=== PATIENT | female | born 1960 | race Caucasian/White ===

== ENCOUNTER 2016-09-30 08:43 | Day surgery (SDC) | payer MEDICARE, BC ==
[2016-09-30] MEDS ORDERED: ceFAZolin 2 GM PREMIX(*) 2 GM/50 ML BAG IVPB ONE (08:57)
[2016-09-30] MEDS ORDERED: Bupivacaine 0.25% SDV* 30 ML ONE (09:30)
[2016-09-30] MEDS ORDERED: fentaNYL* 50 MCG/ML 2 ML VIAL (100 MCG VIAL) ONE (09:33)
[2016-09-30] MEDS ORDERED: Midazolam* 1 MG/ML 2 ML VIAL (2 MG) ONE (09:33)
[2016-09-30] MEDS ORDERED: Propofol* 10 MG/ML 20 ML BTL IV PUSH ONE (09:39)
[2016-09-30 10:29] VITALS: BP 116/68
== END 2016-09-30 10:40 | disposition home or self-care (01) ==
LOC: OREAST 08:43
PROVIDERS: ATTEND Plastic Surgery
DX: M71.342 Other bursal cyst, left hand (principal); I10 Essential (primary) hypertension; M19.90 Unspecified osteoarthritis, unspecified site; F17.210 Nicotine dependence, cigarettes, uncomplicated
CPT/HCPCS: 88304; J0690; J2250; J2704; J3010